=== PATIENT | male | born 1980 | race Caucasian/White ===

== ENCOUNTER 2023-10-18 20:09 | Emergency (ER) | payer OTHER, SELFPAY ==
[2023-10-18 20:09] VITALS: BMI 34.1
[2023-10-18 20:12] VITALS: BP 114/89
--- NOTE | 2023-10-18 21:24 | ED.GENMED ---
History of Present Illness
General
Chief Complaint: Abdominal Pain
Source: patient
Exam Limitations: none
Time Seen by Provider: 10/18/23 21:01
Travel History
Have you had any contact with someone who has COVID-19?: No
Do you have any symptoms of coronavirus? Fever > 100 degrees, chills, cough, shortness of breath, sore throat, loss of taste or smell, muscle aches, or headache?: No
History of Present Illness
History of Present Illness:
This is a 43 year old male that comes in with c/o upper abd pain. States that he was at [facility] 2 days ago with the same pain. States that he was told that it is his Gallbladder and he is to see a Surgeon on Saturday. Patient state that he
started with increased pain and it is a 5/10. States that he is nauseated and slight headache. Denies any fever, chills, chest pain, SOB, vomiting, diarrhea, dizziness, urinary burning.
Past History
Past History
ED Past Medical History: None; Negative Asthma, HTN, Hypercholesterolemia or NIDDM
ED Past Surgical History: Other (Hernia Repair)
Social History
Tobacco: Non-smoker
Alcohol: None
Personal:
Living: with family
Review of Systems
Review of Systems
All Other Systems: ROS reviewed and negative except as documented in HPI and ROS
Constitutional: Reports no symptoms; Denies fever or chills
EENT: Reports no symptoms
Respiratory: Denies cough or trouble breathing
Cardiac: Reports no symptoms; Denies chest pain
ABD/GI: Reports abdominal pain and nausea; Denies vomiting or diarrhea
: Reports no symptoms; Denies dysuria, frequency or urgency
Musculoskeletal: Reports no symptoms
Skin: Reports no symptoms
Neurological: Reports headache; Denies dizzy
Psychiatric: Reports no symptoms
Phy Exam
General Physical Exam
General Presentation: mild distress
General age: appears stated age
General Skin: warm and dry
General Habitus: normal
General Mental: alert
General Hydration: appears well hydrated
ENT Exam
ENT Exam: TM's normal, pharynx normal and neck supple
Eye Exam
Eye Exam: EOMI
Cardiovascular Exam
Cardiovascular Exam: regular rate/rhythm, no edema, no murmur and normal peripheral pulses
Pulmonary Exam
Pulmonary Exam: lungs clear, no respiratory distress, no rales, chest non tender, no crackles, no rhonchi, no wheezing and no cough
Gastrointestinal Exam
Gastrointestinal Exam: normal bowel sounds, soft, no organomegaly, no pulsatile mass, non distended and tender (Right upper abd tenderness with palpation)
Musculoskeletal Exam
Musculoskeletal Exam: full ROM and no edema
Skin Exam
Skin Exam: normal color, warm/dry, no rash and no petechia
Psychiatric Exam
Psychiatric Exam: normal mood/affect
Course
Orders/Labs/Results
Orders:
Orders
10/18/23 21:15
Pantoprazole [Protonix IV] 40 mg IV NOW STA
US Abdomen Limited Urgent
Comment:
Reason For Exam: Right upper abd pain
10/18/23 21:16
Ketorolac [Toradol] 30 mg IV NOW STA
10/18/23 22:02
Complete Blood Count/With Diff Urgent
Comprehensive Metabolic Panel Urgent
Lipase Urgent
Abnormal Lab Results
10/18/23
22:02
RBC 4.64 L 10^6/uL
(4.70-6.10)
10/18/23 22:02
10/18/23 22:02
labs unremarkable. lipase normal at 83
Vital Signs
Initial and Last Documented VS:
Initial Vital Signs
Temp Pulse Resp BP Pulse Ox
97.6 F 71 18 114/89 100
10/18/23 20:12 10/18/23 20:12 10/18/23 20:12 10/18/23 20:12 10/18/23 20:12
Last Documented Vital Signs
Temp Pulse Resp BP Pulse Ox
97.6 F 71 18 126/83 98
10/18/23 20:12 10/18/23 20:12 10/18/23 20:12 10/18/23 21:30 10/18/23 22:15
MDM/Problems Addressed
Differential Diagnosis Includes:
Cholelithiasis, Gastritis,
MDM/Problems Addressed:
This is a 43 year old male that comes in with c/o upper abd pain. State that he was at [facility] 2 days ago and told that he has gallstones. States that today his pain is a 5/10. States that he does have an appointment with the Surgeon on
Saturday.
Will check labs and get US.
Back into see patient. Explained that his Blood work is normal and his US shows that he has gallstones but there is no wall thickening or obstruction. Patient can follow up with the surgeon as scheduled on Saturday. Patient to stay away form fried or
fatty foods. Return with any concerns.
Chronic conditions affecting care:
NA
Acute Exacerbation and/or Progression of Chronic Illness:
NA
*Radiology
Radiology exam reviewed: radiology read reviewed (US- Cholelithiasis. NO findings to suggest acute cholecystitis. No bile duct dilation)
*Pulse Oximetry
Patient hypoxic: no
*EKG
Interpreted by ED Provider?: NA
Rate: EKG- N/A
*Compensation And Benefits Manager Interpretation
Rate: Compensation And Benefits Manager- N/A
*Critical Care Note
Total Time (30-74mins, 75-104mins- exclusive of procedures): Not Applicable
ED Attending Note
-
Portions of this chart may have been created with voice recognition software.� Occasional wrong word or��sound alike� substitutions may have occurred due to the inherent limitations of voice recognition software.
Discharge Plan
Departure
Patient Disposition: Home (Routine Discharge)
Date of Disposition: 10/18/23
Time of Disposition: 22:54
Patient with high blood pressure during this ER visit?: No
Condition: Good
Covid-19: Not Applicable
Discharge Problem:
Cholelithiases
Instructions: Gallstones (DC)
Referrals:
NONE,* [Family Provider] -
Activity Restrictions/Additional Instructions:
As discussed, your blood work is normal and our Ultrasound shows that you do have gallstones. Please follow up with the surgeon as scheduled. You may use Tylenol 1000mg every 6 hours for pain and Ibuprofen 600mg every 6 hours with food for pain. IF
YOU HAVE FEVER, VOMITING, OR YOU HAVE ANY OTHER CONCERNS PLEASE RETURN TO THE EMERGENCY ROOM.
Interventions
Interventions:
*Risk Screen - Suicide Last Done: 10/18/23 20:12
*General Assessment Last Done: 10/18/23 20:12
*Neglect/Abuse Screening Last Done: 10/18/23 20:12
Discharge Date and Time
Print Language: CHINESE
[2023-10-18 21:30] VITALS: BP 126/83
[2023-10-18 22:07] LABS: % Basophils 0.3 % (0-2); % Eosinophils 2.2 % (0-6); % Immature Granulocytes 0.1 % (0-0.5); % Lymphocytes 37.4 % (20.5-51.1); % Monocytes 6.6 % (1.7-9.3); % Neutrophils 53.4 % (42.2-75.2); Absolute Eosinophils 0.2 10^3/uL (0-0.7); Absolute Lymphocytes 2.8 10^3/uL (1.2-3.4); Absolute Monocytes 0.5 10^3/uL (0.1-0.6); Absolute Neutrophils 3.9 10^3/uL (1.4-6.5); Hematocrit 39.6 % (39.0-52.0); Hemoglobin 14.3 g/dL (13.0-18.0); Mean Corp Hgb Conc. 36.1 g/dL (33.0-37.0); Mean Corpuscular Hgb 30.8 pg (27.0-31.0); Mean Corpuscular Volume 85.3 fL (80.0-94.0); Mean Platelet Volume 9.6 fL (7.4-10.4); Nucleated Red Blood Cells % 0 % (-); Platelet Count 295 10^3/uL (130-400); Red Blood Cell Count 4.64 10^6/uL (4.70-6.10); Red Cell Dist. Width 12.1 % (11.5-14.5); White Blood Cell Count 7.4 10^3/uL (4.8-10.8)
[2023-10-18] MEDS: TORADOL 30 MG IV (22:07)
[2023-10-18] MEDS: PROTONIX IV 40 MG IV (22:08)
[2023-10-18 22:24] LABS: ALT (SGPT) 28 U/L (0-50); AST (SGOT) 29 U/L (17-59); Albumin 4.8 g/dl (3.5-5.0); Alkaline Phosphatase 57 U/L (38-126); Blood Urea Nitrogen 19 mg/dl (9-20); Calcium 9.9 mg/dl (8.4-10.2); Carbon Dioxide 23 mmol/L (22-30); Chloride 106 mmol/L (98-107); Estimated Creatinine Clearance 90 ml/min; Glucose 88 mg/dl (70-99); Lipase 83 U/L (23-300); Potassium 4.2 mmol/L (3.5-5.1); Sodium 135 mmol/L (135-145); Total Bilirubin 0.6 mg/dl (0.2-1.3); eGFR > 60.00
[2023-10-18 23:24] VITALS: BP 118/71
== END 2023-10-18 23:30 | disposition home or self-care (01) ==
LOC: EMR 20:09
PROVIDERS: Clinical Nurse Specialist Family Health; EMERGENCY PHYSICIAN Emergency Medicine
DX: K80.20 Calculus of gallbladder without cholecystitis without obstruction (principal); R51.9 Headache, unspecified; R11.0 Nausea
CPT/HCPCS: 99284; 96374; 96375; 76705; 80053; 83690; 85025

== ENCOUNTER 2023-10-22 12:21 | Emergency (ER) | payer OTHER, SELFPAY ==
[2023-10-22 12:23] VITALS: BP 172/105
--- NOTE | 2023-10-22 12:52 | ED.GENMED ---
History of Present Illness
General
Chief Complaint: Abdominal Symptoms
Source: patient and associate manager
Exam Limitations: none
Time Seen by Provider: 10/22/23 12:38
Travel History
Have you had any contact with someone who has COVID-19?: No
Do you have any symptoms of coronavirus? Fever > 100 degrees, chills, cough, shortness of breath, sore throat, loss of taste or smell, muscle aches, or headache?: No
History of Present Illness
History of Present Illness:
Patient has been asymptomatic since his visit the other day. He needs a referral for a surgeon. States not from an insurance standpoint just a referral. Again no symptoms or complaints since his last visit.
Past History
Past History
ED Past Medical History: None; Negative Asthma, HTN, Hypercholesterolemia or NIDDM
ED Past Surgical History: Other (Hernia Repair)
Social History
Tobacco: Non-smoker
Alcohol: None
Personal:
Living: with family
Review of Systems
Review of Systems
All Other Systems: Not applicable
Constitutional: Denies fever
ABD/GI: Denies abdominal pain or vomiting
Phy Exam
Physical Exam
Physical Exam:
GENERAL: Alert and oriented in no apparent distress
CARDIAC: Regular rate and rhythm without any obvious murmurs.
LUNGS: Clear breath sounds,normal
ABDOMEN: Soft, without focal tenderness or distention
NEUROLOGICAL: Alert and oriented , grossly non-focal. Gait normal
SKIN: Warm and dry
PSYCH: Normal and appropriate interaction.
Course
Vital Signs
Initial and Last Documented VS:
Initial Vital Signs
Pulse Resp BP Pulse Ox
78 20 172/105 99
10/22/23 12:23 10/22/23 12:23 10/22/23 12:23 10/22/23 12:23
Last Documented Vital Signs
Temp Pulse Resp BP Pulse Ox
98.1 F 78 20 121/94 99
04/02/24 12:28 10/22/23 12:23 10/22/23 12:23 10/22/23 13:04 10/22/23 12:23
MDM/Problems Addressed
Differential Diagnosis Includes:
Patient totally asymptomatic since his last visit. Abdomen is nontender. No indication repeat labs or repeat testing. No current suspicion for acute cholecystitis. Patient will be given a referral for surgery to follow-up. Fully understanding
*Critical Care Note
Total Time (30-74mins, 75-104mins- exclusive of procedures): Not Applicable
Data Reviewed
Review of Other/Old Records Reveals: Labs, Records and Testing
ED Attending Note
-
Portions of this chart may have been created with voice recognition software.� Occasional wrong word or��sound alike� substitutions may have occurred due to the inherent limitations of voice recognition software.
Discharge Plan
Departure
Patient Disposition: Home (Routine Discharge)
Date of Disposition: 10/22/23
Time of Disposition: 12:54
Patient with high blood pressure during this ER visit?: Yes
Discharge Problem:
Recent biliary colic
Instructions: Gallstones ED, Abdominal Pain, BLOOD PRESSURE
Referrals:
[facility] [Provider Group] - Next open appointment
[facility] [Outside] - Next open appointment
Corey Mathew MD [Active] - Follow up in 5-7 days
Activity Restrictions/Additional Instructions:
Call the surgeon for close follow-up
You also need a primary physician for your blood pressure and any other issues. I listed 2 possibilities are [facility] and [facility] to call.
Return with any recurrence of symptoms
Interventions
Interventions:
*Risk Screen - Suicide Last Done: 10/22/23 12:23
*General Assessment Last Done: 10/22/23 12:23
*Neglect/Abuse Screening Last Done: 10/22/23 12:23
*Nursing Disposition Last Done: 10/22/23 13:13
SW-Hklflf-Tuvzxocdju Assessment Last Done: 10/22/23 13:05
Discharge Date and Time
Discharge Date/Time: 10/22/23 13:14
Print Language: MEXICAN
[2023-10-22 13:04] VITALS: BP 121/94
== END 2023-10-22 13:14 | disposition home or self-care (01) ==
LOC: EMR 12:21
PROVIDERS: EMERGENCY PHYSICIAN Emergency Medicine
DX: K80.50 Calculus of bile duct without cholangitis or cholecystitis without obstruction (principal); R03.0 Elevated blood-pressure reading, without diagnosis of hypertension
CPT/HCPCS: 99282

== ENCOUNTER 2023-11-05 19:11 | Emergency (ER) | payer OTHER, SELFPAY ==
[2023-11-05 19:16] VITALS: BP 117/75
[2023-11-05 19:22] VITALS: BP 117/75; BMI 34.4
--- NOTE | 2023-11-05 19:33 | ED.GENMED ---
History of Present Illness
General
Chief Complaint: Weakness
Source: patient and family
Exam Limitations: other (Language barrier)
Time Seen by Provider: 11/05/23 19:16
Travel History
Have you had any contact with someone who has COVID-19?: No
Do you have any symptoms of coronavirus? Fever > 100 degrees, chills, cough, shortness of breath, sore throat, loss of taste or smell, muscle aches, or headache?: No
History of Present Illness
History of Present Illness:
This is a 43 year old male that comes in with c/o abd pain and vomiting. States that he was here a few weeks ago with gallstones and hypertension. Patient states that for the past 2 days he has had a fever. States that he was dizzy, and coughing.
Today he was in the bathroom and he was nauseated and vomiting yellow color. States that he passed out. States that for the past 2 days he has only eaten twice and is drinking water. Denies any chest pain, SOB, abd pain, diarrhea, headache, urinary
burning.
Past History
Past History
ED Past Medical History: None; Negative Asthma, HTN, Hypercholesterolemia or NIDDM
ED Past Surgical History: Other (Hernia Repair)
Social History
Tobacco: Non-smoker
Alcohol: None
Personal:
Living: with family
Review of Systems
Review of Systems
All Other Systems: ROS reviewed and negative except as documented in HPI and ROS
Constitutional: Reports fever; Denies chills
EENT: Reports no symptoms
Respiratory: Reports cough; Denies trouble breathing
Cardiac: Denies chest pain
ABD/GI: Reports nausea and vomiting; Denies abdominal pain or diarrhea
: Reports no symptoms; Denies dysuria, frequency or urgency
Musculoskeletal: Reports no symptoms
Skin: Reports no symptoms
Neurological: Reports dizzy; Denies headache
Psychiatric: Reports no symptoms
Phy Exam
General Physical Exam
General Presentation: no apparent distress
General age: appears stated age
General Skin: warm and dry
General Habitus: normal
General Mental: alert
General Hydration: appears well hydrated
ENT Exam
ENT Exam: TM's normal, pharynx normal and neck supple
Eye Exam
Eye Exam: EOMI
Cardiovascular Exam
Cardiovascular Exam: regular rate/rhythm, no edema, no murmur and normal peripheral pulses
Pulmonary Exam
Pulmonary Exam: lungs clear, no respiratory distress, no rales, chest non tender, no crackles, no rhonchi, no wheezing and no cough
Gastrointestinal Exam
Gastrointestinal Exam: normal bowel sounds, soft, no organomegaly, no pulsatile mass, non distended and tender (Left lower quadrant tenderness with palpation)
Musculoskeletal Exam
Musculoskeletal Exam: full ROM and no edema
Skin Exam
Skin Exam: normal color, warm/dry, no rash and no petechia
Psychiatric Exam
Psychiatric Exam: normal mood/affect
Course
Orders/Labs/Results
Orders:
Orders
11/05/23 19:31
0.9% Sodium Chloride 1000 ml [Nss] 1,000 ml IV BOLUS
Ondansetron Injectable [Zofran] 4 mg IV NOW STA
11/05/23 19:32
CT Abd/pelvis W Iv Cont Urgent
Comment:
Reason For Exam: Left lower abd pain
11/05/23 19:34
CR Chest - 2 Views Urgent
Comment:
Reason For Exam: COugh, Fever
11/05/23 19:53
COVID-19 Antigen Urgent
Source: Nasal Swab
Complete Blood Count/With Diff Urgent
Comprehensive Metabolic Panel Urgent
Lactic Acid Urgent
Lipase Urgent
Blood Culture Q30M
BENJAMIN Source: Blood/Venous
Specimen Description:
Blood Culture Q30M
BENJAMIN Source: Blood/Venous
Specimen Description:
Influenza A+B Rapid Molecular Urgent
BENJAMIN Source: Nasal Swab
Specimen Description:
11/05/23 20:40
Acetaminophen [Tylenol] 1,000 mg .ROUTE .STK-MED ONE
11/05/23 20:41
Acetaminophen [Tylenol] 1,000 mg PO NOW STA
Abnormal Lab Results
11/05/23
19:53
RBC 4.49 L 10^6/uL
(4.70-6.10)
Hct 38.2 L %
(39.0-52.0)
Absolute Monos (auto) 0.8 H 10^3/uL
(0.1-0.6)
Monocytes % 12.4 H %
(1.7-9.3)
Sodium 134 L mmol/L
(135-145)
Carbon Dioxide 20 L mmol/L
(22-30)
Creatinine 1.7 H mg/dL
(0.7-1.3)
Glucose 102 H mg/dl
(70-99)
11/05/23 19:53
11/05/23 19:53
Carbon dioxide slightly low. Glucose nonfasting,
Vital Signs
Initial and Last Documented VS:
Initial Vital Signs
Pulse BP Pulse Ox
96 117/75 91
11/05/23 19:16 11/05/23 19:16 11/05/23 19:16
Last Documented Vital Signs
Temp Pulse Resp BP Pulse Ox
100.0 F 101 27 115/78 94
11/05/23 19:22 11/05/23 21:00 11/05/23 21:00 11/05/23 21:00 11/05/23 21:00
MDM/Problems Addressed
Differential Diagnosis Includes:
Diverticulitis, COVID, Influeza
MDM/Problems Addressed:
This is a 43 year old male that comes in by ambulance with c/o vomiting and passing out. Patient states that he has only eaten food twice in 2 days and that he has had a fever.
Will get labs, CT abd, IV fluids and medicate for the vomiting.
Back into see patient. Explained that he has Influenza A. Encouraged patient to increase his water intake and explained that he has to eat. Patient to use Tylenol or Ibuprofen for any fever. Follow up with the family doctor. Return with any
concerns.
Chronic conditions affecting care:
NA
Acute Exacerbation and/or Progression of Chronic Illness:
NA
*Radiology
Radiology exam reviewed: radiology read reviewed (Chest-No radiographic evidence for Pneumonia, pleural effusion or pneumoperitoneum. Mild to moderate elevation of the anterior right hemidiaphragm. MIld subsegmental atelectasis in the lower lobes.
CT-Moderate diffuse hepatic steatosis. Mild hepatosplenomegaly. Cholelithias. Mild chronic bilatera) and all reviewed NAD by ED Provider (CT cont- bilateral renal diseae. Small recurrent fat-containing anterior abdominal wall hernia. MIldly
enlarged prostate gland causing mild chronic urinary bladder outlet obstruction. Severe discogenic degenerative disease at L5/S1)
*Pulse Oximetry
Patient hypoxic: no
*Napper Grinder Interpretation
Rate: normal
Heart Rate: 93
Rhythm: sinus
*Critical Care Note
Total Time (30-74mins, 75-104mins- exclusive of procedures): Not Applicable
ED Attending Note
-
Portions of this chart may have been created with voice recognition software.� Occasional wrong word or��sound alike� substitutions may have occurred due to the inherent limitations of voice recognition software.
Discharge Plan
Departure
Patient Disposition: Home (Routine Discharge)
Date of Disposition: 11/05/23
Time of Disposition: 22:22
Patient with high blood pressure during this ER visit?: No
Condition: Good
Covid-19: Negative COVID-19
Discharge Problem:
Influenza A
Instructions: Flu, Adult (DC)
Referrals:
NONE,* [Family Provider] -
Activity Restrictions/Additional Instructions:
As discussed, you have influenza A. This is a viral syndrome that has to run it course. Please increase your water intake to 8-8oz glasses daily. You have to eat a well balanced diet so the body has something to work with. Follow up with the family
doctor for recheck. Tylenol or Ibuprofen for any fever. IF YOU HAVE ANY OTHER CONCERNS PLEASE RETURN TO THE EMERGENCY ROOM.
Interventions
Interventions:
ED- Fall Risk Assessment Last Done: 11/05/23 19:27
ED- Cardiac Assessment Last Done: 11/05/23 19:27
ED- Neurological Assessment Last Done: 11/05/23 19:27
ED- Pulmonary Assessment Last Done: 11/05/23 19:27
Discharge Date and Time
Print Language: SERBIAN
[2023-11-05] MEDS: NSS 1000 IV (19:46)
[2023-11-05] MEDS: ZOFRAN 4 MG IV (19:46)
[2023-11-05 20:05] LABS: % Basophils 0.3 % (0-2); % Eosinophils 0.6 % (0-6); % Immature Granulocytes 0.3 % (0-0.5); % Lymphocytes 24.2 % (20.5-51.1); % Monocytes 12.4 % (1.7-9.3); % Neutrophils 62.2 % (42.2-75.2); Absolute Lymphocytes 1.5 10^3/uL (1.2-3.4); Absolute Monocytes 0.8 10^3/uL (0.1-0.6); Absolute Neutrophils 3.9 10^3/uL (1.4-6.5); Hematocrit 38.2 % (39.0-52.0); Hemoglobin 13.8 g/dL (13.0-18.0); Mean Corp Hgb Conc. 36.1 g/dL (33.0-37.0); Mean Corpuscular Hgb 30.7 pg (27.0-31.0); Mean Corpuscular Volume 85.1 fL (80.0-94.0); Nucleated Red Blood Cells % 0 % (-); Platelet Count 221 10^3/uL (130-400); Red Blood Cell Count 4.49 10^6/uL (4.70-6.10); White Blood Cell Count 6.3 10^3/uL (4.8-10.8)
[2023-11-05 20:16] LABS: Lactic Acid 1.3 mmol/L (0.7-2.0)
[2023-11-05 20:19] LABS: ALT (SGPT) 32 U/L (0-50); AST (SGOT) 38 U/L (17-59); Albumin 4.8 g/dl (3.5-5.0); Alkaline Phosphatase 51 U/L (38-126); Blood Urea Nitrogen 16 mg/dl (9-20); COVID-19 Antigen Negative (Negative); Calcium 9.3 mg/dl (8.4-10.2); Carbon Dioxide 20 mmol/L (22-30); Chloride 104 mmol/L (98-107); Estimated Creatinine Clearance 64 ml/min; Glucose 102 mg/dl (70-99); Lipase 149 U/L (23-300); Potassium 4.2 mmol/L (3.5-5.1); Sodium 134 mmol/L (135-145); Total Bilirubin 0.6 mg/dl (0.2-1.3); Total Protein 8.2 g/dl (6.3-8.2); eGFR 50.04
[2023-11-05 20:21] VITALS: BP 134/86
[2023-11-05] MEDS: TYLENOL 1000 MG PO (20:42)
[2023-11-05 21:00] VITALS: BP 115/78
== END 2023-11-05 22:56 | disposition home or self-care (01) ==
LOC: EMR 19:11
PROVIDERS: Clinical Nurse Specialist Family Health; EMERGENCY PHYSICIAN Emergency Medicine
DX: J10.1 Influenza due to other identified influenza virus with other respiratory manifestations (principal); Z11.52 Encounter for screening for COVID-19
CPT/HCPCS: 99285; 96374; 96361; 71046; 74177; 80053; 83605; 83690; 85025; 87040; 87502; 87811; Q9967

== ENCOUNTER 2023-11-25 18:04 | Inpatient (IN) | payer OTHER, SELFPAY ==
[2023-11-23] VITALS (9 sets, daily range): BP systolic 106–139; BP diastolic 58–89
--- NOTE | 2023-11-23 12:04 | ED.GENMED ---
History of Present Illness
<Pilar Ritchie PA-C - Last Filed: 11/25/23 18:10>
General
Chief Complaint: Abdominal Pain
Source: patient
Exam Limitations: none
Time Seen by Provider: 11/23/23 11:59
Nursing documentation reviewed up to this point in time: agreed with
Travel History
Have you had any contact with someone who has COVID-19?: No
Do you have any symptoms of coronavirus? Fever > 100 degrees, chills, cough, shortness of breath, sore throat, loss of taste or smell, muscle aches, or headache?: No
History of Present Illness
History of Present Illness:
43-year-old male with a history of cholelithiasis presents for right upper quadrant pain to his back x 2 days
pt asys th epain was waxing and waning but it got worse since midnight
nausea but no vomiting
no urinary symptos
no fever,chills, diarrhea, consitpation
he says he has had trouble breathing overnight due to pain
the pain is worse with movement, deep breathing,
he has take tylenol without relief
no h/o aortic disease.
Past History
<Pilar Ritchie PA-C - Last Filed: 11/25/23 18:10>
Past History
ED Past Medical History: Negative Asthma, HTN, Hypercholesterolemia or NIDDM
ED Past Surgical History: Other (Hernia Repair)
Social History
Tobacco: Non-smoker
Alcohol: None
Personal:
Living: with family
Review of Systems
<ANGELA Johnson Last Filed: 11/25/23 18:10>
Review of Systems
Allergies reviewed?: Yes
All Other Systems: Not applicable
Phy Exam
<ANGELA Johnson Last Filed: 11/25/23 18:10>
Physical Exam
Physical Exam:
GENERAL: Alert , in no apparent distress, moaning, pale
EYE: pupils equal and reactive
NECK: Supple
ENT: o/p clr, mmm.
CARDIAC: Regular rate and rhythm ., no edema
LUNGS: Clear breath sounds bilaterally, no acute respiratory distress, no wheezes/rales/rhonchi
ABDOMEN: Soft, minmal RUQ tenderness, no r/g, moderate R cvat, normal bowel sounds
NEUROLOGICAL: Alert and oriented, no focal neuro deficits
SKIN: Warm and dry, skin intact.
MUSCULOSKELETAL: No edema, well perfused.
PSYCH: Normal and appropriate interaction.
Course
<Pilar Ritchie PA-C - Last Filed: 11/25/23 18:10>
Orders/Labs/Results
Orders:
Orders
11/23/23 12:08
US Abdomen Complete/Upper Urgent
Comment:
Reason For Exam: ruq pain, h.o cholelithiasis
11/23/23 12:32
Electrocardiogram (*1) Urgent
Reason for Study: Abdominal Pain
EKG- Treatment ONCE
11/23/23 12:33
Complete Blood Count/With Diff Urgent
Comprehensive Metabolic Panel Urgent
Lipase Urgent
11/23/23 12:53
0.9% Sodium Chloride 1000 ml [Nss] 1,000 ml IV BOLUS
HYDROmorphone [Dilaudid] 1 mg IV NOW STA
11/23/23 12:54
Troponin I Urgent
Ondansetron Injectable [Zofran] 4 mg IV NOW STA
11/23/23 13:00
CR Chest Portable - 1 View Urgent
Comment:
Reason For Exam: abd pain to back
Reason Study Needs to be Portable: Patient Unstable
11/23/23 Dinner
Clear Liquid
At Your Request: Limited, Half Section Ironer Required
Does patient need a safe tray?: No
11/23/23 15:13
CT Chest/abd/pelvis Angio W/wo Urgent
Comment:
Reason For Exam: ruq severe to back
11/23/23 15:17
HYDROmorphone [Dilaudid] 0.5 mg IV NOW STA
11/23/23 16:35
Ketorolac [Toradol] 15 mg IV NOW STA
11/23/23 17:03
Admit/Transfer Patient As Directed
Co-Sign Provider:
Level of Care: Observation services
Assign to:: Medical/Surgical
Physician / Group: Surgery/Mateusz
Diagnosis: Biliary colic
Code Status As Directed
Resuscitation Status: Full Code
11/23/23 17:04
Urinalysis Reflex To Culture Urgent
Date Specimen was Collected: 11/23/23
Time Specimen was Collected: 17:01
11/23/23 18:14
Acetaminophen [Tylenol] 650 mg PO Q4HPRN PRN
11/23/23 18:14
Activity As Directed
Activity Level: Out of Bed-Early Mobility
Vital Signs As Directed
Frequency: Per unit guidelines
DX Deep Vein Thrombosis Video Routine
11/23/23 19:00
Ondansetron Injectable [Zofran] 4 mg IV Q6HPRN PRN
11/23/23 20:00
HYDROmorphone [Dilaudid] 1 mg IV Q4HPRN PRN
11/23/23 21:00
Enoxaparin Sodium [Lovenox] 40 mg SC QPM
11/23/23 23:00
Ketorolac [Toradol] 10 mg IV Q6HPRN PRN
11/24/23 04:17
Complete Blood Count/No Diff IN AM
Comprehensive Metabolic Panel IN AM
Abnormal Lab Results
11/23/23
12:33
RBC 4.32 L 10^6/uL
(4.70-6.10)
Hct 37.4 L %
(39.0-52.0)
Absolute Monos (auto) 0.8 H 10^3/uL
(0.1-0.6)
Creatinine 1.4 H mg/dL
(0.7-1.3)
11/23/23 12:33
11/23/23 12:33
Vital Signs
Initial and Last Documented VS:
Initial Vital Signs
Temp Pulse Resp BP Pulse Ox
98.7 F 83 18 115/80 99
11/23/23 11:02 11/23/23 11:02 11/23/23 11:02 11/23/23 11:02 11/23/23 11:02
Last Documented Vital Signs
Temp Pulse Resp BP Pulse Ox
97.7 F 73 16 129/82 95
11/25/23 16:00 11/25/23 16:00 11/25/23 16:00 11/25/23 16:00 11/25/23 16:00
<Maikol Colunga, DO - Last Filed: 11/24/23 07:02>
Orders/Labs/Results
Orders:
Orders
11/23/23 12:08
US Abdomen Complete/Upper Urgent
Comment:
Reason For Exam: ruq pain, h.o cholelithiasis
11/23/23 12:32
Electrocardiogram (*1) Urgent
Reason for Study: Abdominal Pain
EKG- Treatment ONCE
11/23/23 12:33
Complete Blood Count/With Diff Urgent
Comprehensive Metabolic Panel Urgent
Lipase Urgent
11/23/23 12:53
0.9% Sodium Chloride 1000 ml [Nss] 1,000 ml IV BOLUS
HYDROmorphone [Dilaudid] 1 mg IV NOW STA
11/23/23 12:54
Troponin I Urgent
Ondansetron Injectable [Zofran] 4 mg IV NOW STA
11/23/23 13:00
CR Chest Portable - 1 View Urgent
Comment:
Reason For Exam: abd pain to back
Reason Study Needs to be Portable: Patient Unstable
11/23/23 Dinner
Clear Liquid
At Your Request: Limited, Half Section Ironer Required
Does patient need a safe tray?: No
11/23/23 15:13
CT Chest/abd/pelvis Angio W/wo Urgent
Comment:
Reason For Exam: ruq severe to back
11/23/23 15:17
HYDROmorphone [Dilaudid] 0.5 mg IV NOW STA
11/23/23 16:35
Ketorolac [Toradol] 15 mg IV NOW STA
11/23/23 17:03
Admit/Transfer Patient As Directed
Co-Sign Provider:
Level of Care: Observation services
Assign to:: Medical/Surgical
Physician / Group: Surgery/Mateusz
Diagnosis: Biliary colic
Code Status As Directed
Resuscitation Status: Full Code
11/23/23 17:04
Urinalysis Reflex To Culture Urgent
Date Specimen was Collected: 11/23/23
Time Specimen was Collected: 17:01
11/23/23 18:14
Acetaminophen [Tylenol] 650 mg PO Q4HPRN PRN
11/23/23 18:14
Activity As Directed
Activity Level: Out of Bed-Early Mobility
Vital Signs As Directed
Frequency: Per unit guidelines
DX Deep Vein Thrombosis Video Routine
11/23/23 19:00
Ondansetron Injectable [Zofran] 4 mg IV Q6HPRN PRN
11/23/23 20:00
HYDROmorphone [Dilaudid] 1 mg IV Q4HPRN PRN
11/23/23 21:00
Enoxaparin Sodium [Lovenox] 40 mg SC QPM
11/23/23 23:00
Ketorolac [Toradol] 10 mg IV Q6HPRN PRN
11/24/23 04:17
Complete Blood Count/No Diff IN AM
Comprehensive Metabolic Panel IN AM
Abnormal Lab Results
11/23/23
12:33
RBC 4.32 L 10^6/uL
(4.70-6.10)
Hct 37.4 L %
(39.0-52.0)
Absolute Monos (auto) 0.8 H 10^3/uL
(0.1-0.6)
Creatinine 1.4 H mg/dL
(0.7-1.3)
11/23/23 12:33
11/23/23 12:33
Vital Signs
Initial and Last Documented VS:
Initial Vital Signs
Temp Pulse Resp BP Pulse Ox
98.7 F 83 18 115/80 99
11/23/23 11:02 11/23/23 11:02 11/23/23 11:02 11/23/23 11:02 11/23/23 11:02
Last Documented Vital Signs
Temp Pulse Resp BP Pulse Ox
97.7 F 73 16 129/82 95
11/25/23 16:00 11/25/23 16:00 11/25/23 16:00 11/25/23 16:00 11/25/23 16:00
Nishantlt;Pilar Ritchie PA-C - Last Filed: 11/25/23 18:10>
MDM/Problems Addressed
Differential Diagnosis Includes:
cholelithisis, dissection, pe, kidney stone
MDM/Problems Addressed:
43-year-old male with a history of a known gallstone presents for right upper quadrant pain radiating to his back over the last 2 days which has gotten much worse over night around midnight. It rates 10 out of 10 despite Tylenol. Has had some
nausea with no vomiting. He last had a bowel movement yesterday which is normal. He is having no urinary symptoms. His pain is worse with deep breathing and movement. He is requesting to have his gallbladder taken out
Patient said he had similar episode of pain 2 months ago when he got diagnosed when he came here. He may have seen surgery as an outpatient, it sounds as if they made an appointment for him but I am not sure if he saw the surgeon
On arrival patient's pale, moaning, normotensive, not tachycardic, has mild right-sided CVA tenderness, no skin changes, minimal to no right upper quadrant tenderness but he does have discomfort with deep breathing. EKG is normal sinus rhythm
without any ST elevation or depression. He has unremarkable labs including negative troponin, normal white count, normal lipase. Patient's creatinine is slightly elevated 1.4 but his GFR is over 60. Patient's portable chest x-ray shows a narrow
mediastinum. I saw this patient in conjunction with the ED physician Dr. Colunga. He did not feel that dissection was likely however this seems to be a fair amount of pain for cholelithiasis. While awaiting ultrasound report patient began moaning
again in pain, his color is slightly pale but his vitals are stable. Will redosed with pain medication and send for dissection study. Anticipate admission
Insert time dissection study negative discussed with radiologist. I did reach out to Dr. Almanzar on-call for general surgery who will evaluate the patient at the bedside and patient will likely be admitted to either medicine or surgery service
accepted to surgery
<Maikol Colunga, - Last Filed: 11/24/23 07:02>
*Critical Care Note
Total Time (30-74mins, 75-104mins- exclusive of procedures): Not Applicable
ED Attending Note
<Pilar Ritchie PA-C - Last Filed: 11/25/23 18:10>
-
Portions of this chart may have been created with voice recognition software.� Occasional wrong word or��sound alike� substitutions may have occurred due to the inherent limitations of voice recognition software.
<Maikol Colunga, DO - Last Filed: 11/24/23 07:02>
ED Attending Note
Patient seen and examined by attending physician: Yes
I performed the substantive portion of visit, reviewed & personally made and approve the management plan that is documented in note by myself or POLLY.: Yes
ED Attending Note:
SEEN WITH PA, examined independently 43-year-old male history of gallstones presents with 2 days of pain in his right upper abdomen into his back
EKG noted prior imaging noted
Discharge Plan
Departure
Patient Disposition: Admit
Date of Disposition: 11/23/23
Time of Disposition: 16:52
Admit to: Med/Surg
Admit to doctor: mateusz
Presentation/result/management discussed w/ accepting MD/DO: gs
Condition: Fair
Covid-19: Not Applicable
Discharge Problem:
Cholelithiasis
Interventions
Interventions:
*Risk Screen - Suicide Last Done: 11/23/23 18:28
*General Assessment Last Done: 11/23/23 11:02
*Neglect/Abuse Screening Last Done: 11/23/23 11:02
ED- Fall Risk Assessment Last Done: 11/23/23 12:26
*ED COVID-19 Vaccine History Last Done: 11/23/23 11:02
*Nursing Disposition Last Done: 11/23/23 18:12
NH-Psomtd-Vrxyeolwmu Assessment Last Done: 11/23/23 12:26
Discharge Date and Time
Discharge Date/Time: 11/23/23 18:12
[2023-11-23] MEDS: DILAUDID 1 MG IV ×2 (12:58→21:35)
[2023-11-23] MEDS: NSS 1000 IV (12:59)
[2023-11-23] MEDS: ZOFRAN 4 MG IV ×2 (12:59→22:59)
[2023-11-23 13:09] LABS: % Basophils 0.3 % (0-2); % Eosinophils 0.8 % (0-6); % Immature Granulocytes 0.3 % (0-0.5); % Lymphocytes 23.6 % (20.5-51.1); % Monocytes 8.4 % (1.7-9.3); % Neutrophils 66.6 % (42.2-75.2); Absolute Eosinophils 0.1 10^3/uL (0-0.7); Absolute Lymphocytes 2.3 10^3/uL (1.2-3.4); Absolute Monocytes 0.8 10^3/uL (0.1-0.6); Absolute Neutrophils 6.5 10^3/uL (1.4-6.5); Hematocrit 37.4 % (39.0-52.0); Hemoglobin 13.2 g/dL (13.0-18.0); Mean Corp Hgb Conc. 35.3 g/dL (33.0-37.0); Mean Corpuscular Hgb 30.6 pg (27.0-31.0); Mean Corpuscular Volume 86.6 fL (80.0-94.0); Mean Platelet Volume 9.9 fL (7.4-10.4); Nucleated Red Blood Cells % 0 % (-); Platelet Count 271 10^3/uL (130-400); Red Blood Cell Count 4.32 10^6/uL (4.70-6.10); White Blood Cell Count 9.8 10^3/uL (4.8-10.8)
[2023-11-23 13:22] LABS: ALT (SGPT) 23 U/L (0-50); AST (SGOT) 23 U/L (17-59); Albumin 4.7 g/dl (3.5-5.0); Alkaline Phosphatase 61 U/L (38-126); Blood Urea Nitrogen 16 mg/dl (9-20); Calcium 9.8 mg/dl (8.4-10.2); Carbon Dioxide 27 mmol/L (22-30); Chloride 105 mmol/L (98-107); Glucose 86 mg/dl (70-99); Lipase 77 U/L (23-300); Sodium 136 mmol/L (135-145); Total Bilirubin 0.7 mg/dl (0.2-1.3); eGFR > 60.00
[2023-11-23 13:34] LABS: Troponin I < 0.012 ng/ml
[2023-11-23] MEDS: DILAUDID 0.5 MG IV (15:58)
--- NOTE | 2023-11-23 16:51 | HPS.HSE ---
Family Physician
-
Family Physician: NOT KNOW UNKNOWN - PT DOES
Chief Complaint
-
pain/vomiting
History of Present Illness
This is a 43 yo male with a h/o HTN and umbilical hernia repair in [facility] and gallstones with multiple presentations for biliary colic in the last 2 months through the ED and Camron Cramer who presents today via ems with nausea, vomiting and
abdominal pain radiating into his back. He was referred to surgery on prior ED visit for discussion of cholecystectomy and had follow up appointment scheduled with Dr. Mathew on 10/30 which he did not keep. He reports, he has follow up scheduled
with a surgeon at [facility] this month instead. Over the past 2 days, he has had waxing and waning pain associated with food which worsened overnight with onset of nausea and vomiting prompting him to call EMS. He is more comfortable now but still
has residual back pain. His abdomen is soft and nontender. Nausea has improved.
Medical History
Past Medical History
Past Medical History: Reports HTN
Past Surgical History: Reports Other (UHR 3 years ago in [facility])
Social History
Tobacco: Non-smoker
Alcohol: None
Personal:
Living: With Family
Family History
Family History: Not pertinent
Allergies / Home Medications
Allergies reflects when Allergies were last updated in [employer].
Home Medications with original date entered in [employer]
Allergy/Medication List:
Patient Allergies
Allergy/AdvReac Type Severity Reaction Status Date / Time
No Known Allergies Allergy Verified 11/23/23 11:03
If medication reconciliation has not been performed, why?: Medication List N/A
Review of Systems
-
History Source: Patient and Family
A 12 point ROS was completed and negative except as noted: Yes
Physical Exam
Vital Signs
Vital Signs
Temp Pulse Resp BP Pulse Ox
98.7 F 104 41 113/65 97
11/23/23 11:02 11/23/23 15:54 11/23/23 15:54 11/23/23 15:54 11/23/23 15:54
Physical Exam
General: Well Nourished and Conversant; No Comfortable
HEENT: NormoCephalic and Moist mucous membranes
GI: Soft, Non Tender and Non Distended
Skin: Warm and Dry
Neuro: Awake, Alert and AO x 3
Psych: Calm
Laboratory Results
-
11/23/23 12:33
11/23/23 12:33
Laboratory Results
Total Bilirubin 0.7 mg/dl (0.2-1.3) 11/23/23 12:33
AST 23 U/L (17-59) 11/23/23 12:33
ALT 23 U/L (0-50) 11/23/23 12:33
Alkaline Phosphatase 61 U/L (38-126) 11/23/23 12:33
Troponin I < 0.012 ng/ml 11/23/23 12:54
Lipase 77 U/L (23-300) 11/23/23 12:33
Data Reviewed
-
CT Scan: Image Personally Visualized and interpreted, Report Reviewed by me, Discussed with Physician, Discussed with Nurse, Discussed with Patient and Discussed with Family
Ultrasound: Image Personally Visualized and interpreted, Report Reviewed by me, Discussed with Physician, Discussed with Patient and Discussed with Family
Lab Data: Labs Reviewed by me, Discussed with Physician, Discussed with Patient and Discussed with Family
Old Records: Reviewed
Impression/Plan
-
IMPRESSION:
43 yo male presenting with biliary colic with intractable RUQ pain into his back and nausea with known history of gallstones and multiple ED visits for the same. US and CT reviewed. Negative Zabala's and no tenderness on exam. Gallstones present
with possible stone in gallbladder neck. No evidence of cholecystitis. LFT's normal. No leukocytosis. Mild RAFFAELE, suspect secondary to dehydration. Afebrile with mild tachycardia, improved with analgesics.
PLAN:
Place in observation
LR at 100ml/hr IV
Clear liquid diet as tolerated
Analgesics/Antiemetics prn
Labs in AM
Will follow, tentative OR Saturday if pain persists vs as an outpatient on a scheduled basis with his surgeon at [facility]
[2023-11-23] MEDS: TORADOL 15 MG IV (17:00)
[2023-11-23 17:15] LABS: Urine Albumin Negative (Neg - Trace); Urine Bilirubin Negative (Negative); Urine Character Clear (Clear); Urine Color Yellow; Urine Glucose Negative (Negative); Urine Ketone Negative (Negative); Urine Leukocyte Negative (Negative); Urine Nitrite Negative (Negative); Urine Occult Blood Negative (Negative); Urine Urobilinogen Negative (Neg - 1+)
[2023-11-23] MEDS: LOVENOX 40 MG SC (20:58)
[2023-11-23] MEDS: TORADOL 10 MG IV (22:44)
[2023-11-24 05:18] LABS: Hematocrit 35.9 % (39.0-52.0); Hemoglobin 12.6 g/dL (13.0-18.0); Mean Corp Hgb Conc. 35.1 g/dL (33.0-37.0); Mean Corpuscular Hgb 30.4 pg (27.0-31.0); Mean Corpuscular Volume 86.5 fL (80.0-94.0); Mean Platelet Volume 10.1 fL (7.4-10.4); Platelet Count 262 10^3/uL (130-400); Red Blood Cell Count 4.15 10^6/uL (4.70-6.10); Red Cell Dist. Width 12.1 % (11.5-14.5); White Blood Cell Count 7.9 10^3/uL (4.8-10.8)
[2023-11-24 05:48] LABS: ALT (SGPT) 18 U/L (0-50); AST (SGOT) 19 U/L (17-59); Albumin 4.2 g/dl (3.5-5.0); Alkaline Phosphatase 56 U/L (38-126); Blood Urea Nitrogen 15 mg/dl (9-20); Calcium 9.5 mg/dl (8.4-10.2); Carbon Dioxide 24 mmol/L (22-30); Chloride 106 mmol/L (98-107); Estimated Creatinine Clearance 77 ml/min; Glucose 93 mg/dl (70-99); Potassium 4.7 mmol/L (3.5-5.1); Sodium 137 mmol/L (135-145); Total Bilirubin 0.9 mg/dl (0.2-1.3); Total Protein 7.3 g/dl (6.3-8.2); eGFR > 60.00
[2023-11-24] MEDS: DILAUDID 1 MG IV ×5 (05:54→23:35)
[2023-11-24 07:30] VITALS: BP 122/73
[2023-11-24] MEDS: LR 1000 IV ×2 (07:51→17:32)
[2023-11-24] MEDS: TORADOL 10 MG IV ×2 (08:06→15:51)
--- NOTE | 2023-11-24 10:51 | CM ---
Addendum entered by Valentin Kraus 11/24/23 10:57:
OBS status reviewed, OBS letter signed, placed on chart, pt has a copy.
Original Note:
CM following re: discharge planning.
reviewed pt's chart, met with pt and pt's spouse at bedside.
Pt is a 43 year old Bulgarian/Lebanese speaking male, admitted with OBS status and primary dx of biliary colic with intractable RUQ pain into his back and nausea with known history of gallstones and multiple ED visits for the same.
Pt reports he was born and grew up in [facility], immigrated to [place] 7 years ago, his spouse and 5 children reunited with him 3 months ago. Pt resides with spouse and 5 children (26, 24, 18, 15 and 14 year of age) in a 2SH, 2 steps to enter. Pt
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 Pt admitted he has been dealing with pain for the past 4-5 years.
PCP: pt stated he will have an appointment with Dr. April Duffy on 12/27/23.
PCP: [facility].
D/C plan: home with anticipated no needs.
CM will follow with discharge plan updates as hospitalization progresses
[2023-11-24] MEDS: ZOSYN 50 IV ×3 (11:51→23:06)
[2023-11-24] MEDS: TYLENOL 650 MG PO (14:24)
[2023-11-24 15:50] VITALS: BP 132/77
[2023-11-24] MEDS: LOVENOX 40 MG SC (16:56)
[2023-11-24] MEDS: DILAUDID 0.5 MG IV (16:56)
[2023-11-24] MEDS: ZOFRAN 4 MG IV ×2 (17:01→23:28)
--- NOTE | 2023-11-24 17:59 | PTCARENOTE ---
Patient with mod-severe pain today in right flank area and occasionally epigastric area. PRNs dilaudid, toradol, and tylenol administered. Pain unable to be managed- Sandi Canseco notified and ordered stat dilaudid 0.5mg and increased PRN dilaudid to
1mg. Patient then with nausea and one large episode emesis- zofran administered. Patient now resting comfortably in bed.
[2023-11-24] MEDS: COMPAZINE 5 MG IV (21:54)
[2023-11-24 23:15] VITALS: BP 127/28
[2023-11-25] VITALS (12 sets, daily range): BP systolic 126–164; BP diastolic 73–97
[2023-11-25] MEDS: LR 1000 IV (05:02)
[2023-11-25] MEDS: DILAUDID 1 MG IV ×2 (05:02→08:56)
[2023-11-25] MEDS: ZOSYN 50 IV ×4 (05:03→23:57)
[2023-11-25 05:08] LABS: Hematocrit 34.6 % (39.0-52.0); Hemoglobin 12.3 g/dL (13.0-18.0); Mean Corp Hgb Conc. 35.5 g/dL (33.0-37.0); Mean Corpuscular Hgb 30.8 pg (27.0-31.0); Mean Corpuscular Volume 86.5 fL (80.0-94.0); Platelet Count 247 10^3/uL (130-400); Red Cell Dist. Width 11.9 % (11.5-14.5); White Blood Cell Count 6.8 10^3/uL (4.8-10.8)
[2023-11-25 05:33] LABS: Blood Urea Nitrogen 17 mg/dl (9-20); Calcium 9.4 mg/dl (8.4-10.2); Carbon Dioxide 23 mmol/L (22-30); Chloride 106 mmol/L (98-107); Estimated Creatinine Clearance 64 ml/min; Glucose 84 mg/dl (70-99); Potassium 4.5 mmol/L (3.5-5.1); Sodium 140 mmol/L (135-145); eGFR 50.04
[2023-11-25] MEDS: TORADOL 10 MG IV (07:21)
[2023-11-25] MEDS: ZOFRAN 4 MG IV (08:56)
--- NOTE | 2023-11-25 09:00 | W.SUR.PREOP ---
Pre-Operative Surgical Note
-
I have examined this patient prior to the performance of the scheduled procedure.
The patient's condition is unchanged from the time of the current History and
Physical and the patient is able to undergo the scheduled procedure.
--- NOTE | 2023-11-25 09:00 | W.PN.GS2 ---
Today's Communication / Plan
-
Or today
Assessment / Plan
-
This is a 43-year-old male primarily Romanian-speaking with a history of umbilical hernia repair with mesh, who presents with a 2-day history of postprandial right upper quadrant pain. Imaging and blood work all consistent with acute cholecystitis.
Plan for laparoscopic cholecystectomy in the OR today.
N.p.o., IV fluids, IV antibiotics.
Risks/Benefits/Alternatives, expected postoperative course and possible complications (bleeding, infection, injury to surrounding structures, acute/chronic pain) discussed at length. Patient wishes to proceed with surgery. All questions answered.
Consent obtained.
I spent roughly 60 minutes in total for the care of this patient today including direct patient care and counseling, reviewing labs, imaging, coordination of care, as well as documentation.
Time Spent
Total Time Spent with Patient (in minutes): 20
Subjective Data
-
Date of Service: November 25, 2023
Interval Events:
No acute events overnight. Slept well. Pain Controlled. Denies Nausea/Vomiting.
Objective Data
-
Intake and Output
11/24/23 11/25/23 11/26/23
06:59 06:59 06:59
Intake Total 2580 / 2580
Balance 2580 / 2580
Intake:
Oral fluids 480 / 480
IV fluids (Total) 1900 / 1900
IV piggybacks 200 / 200
Other:
Number of approximated MODERATE 2
amounts of urine
Vital Signs
Temp Pulse Resp BP Pulse Ox
98.6 F 66 16 126/73 93
11/25/23 08:00 11/25/23 08:00 11/25/23 08:00 11/25/23 08:00 11/25/23 08:00
Lab Results
11/25/23 04:17
11/25/23 04:17
Calcium 9.4 mg/dl (8.4-10.2) 11/25/23 04:17
Total Bilirubin 0.9 mg/dl (0.2-1.3) 11/24/23 04:17
AST 19 U/L (17-59) 11/24/23 04:17
ALT 18 U/L (0-50) 11/24/23 04:17
Alkaline Phosphatase 56 U/L (38-126) 11/24/23 04:17
Total Protein 7.3 g/dl (6.3-8.2) 11/24/23 04:17
Albumin 4.2 g/dl (3.5-5.0) 11/24/23 04:17
Physical Exam
-
GENERAL/NEURO: Awake, Alert, no distress
CHEST: Unlabored breathing on RA
ABDOMEN: Soft, tender to palpation in the right upper quadrant, Non-Distended, midline umbilical hernia incision
--- NOTE | 2023-11-25 11:26 | W.IMMPOSTOP ---
Addendum entered and electronically signed by Francisco Monteiro MD 11/26/23 11:13:
Under operative findings 'A small branch of this was coursing to the gallbladder consistent with a posterior cystic <del>duct</del> artery, this was clipped and divided.'
Original Note:
Surgical Immed Post Op Note
-
Primary Surgeon: Francisco Monteiro MD
Assisting Surgeon: None
Pre-op Diagnosis: Acute cholecystitis
Post-op Diagnosis: Same
Procedure Performed: Laparoscopic cholecystectomy and cholangiogram
Anesthesia Type: General
Specimen / Cultures: Gallbladder and contents
Estimated Blood Loss: 7 cc
Complications: None
Operative Findings: Tense/inflamed gallbladder. Critical view of safety obtained prior to and attempted cholangiogram. While we were able to cannulate the duct we were unable to successfully flush the duct due to its diminutive nature. Right
hepatic artery noted to be coursing in the gallbladder fossa. A small branch of this was coursing to the gallbladder consistent with a posterior cystic duct artery this was clipped and divided. The main trunk coursing to the liver was preserved.
A true cystic artery in its normal anatomic position was also identified and preserved. A small rent was made in the gallbladder with spillage of bile but no stones, this was suctioned out until clear.
POST OP PLAN:
Imaging: None
Labs: Routine AM
Diet: Advance to Regular as tolerated
Analgesia: Tylenol 650mg q6 Fernando, Katrin 5mg q6 PRN, Dilaudid 0.5mg q2h PRN
Neuro/vascular checks: q4h
AC/AP: Hold Therapeutic AC, Ok for DVT PPx
Activity: Ad Ada
Wound/Incisions/Drains: Routine
Abx: Zosyn or Brilinta x 4 days
Dispo: RNF, anticipate discharge home tomorrow.
--- NOTE | 2023-11-25 11:30 | OR.RPT ---
Addendum entered and electronically signed by Francisco Monteiro MD 11/26/23 11:14:
Under operative findings: 'A small branch of this was coursing to the gallbladder consistent with a posterior cystic <del>duct</del> artery, this was clipped and divided.'
Original Note:
Operative Report
Operative Report
Patient Name: Christopher Coburn
: 1980
Date of Operation: 11/25/2023
Preoperative Diagnosis: Acute cholecystitis
Postoperative Diagnosis: Same
Procedure(s):
Laparoscopic Cholecystectomy with Cholangiogram
Surgeon(s):
Dr. Monteiro
Commercial Front Load Operator(s):
None
Anesthesia: General
Estimated Blood Loss: 7 cc
Urine Output: None
Drains/Lines/Implants: None
Specimens:
1. Gallbladder and contents
HPI/Surgical Indications:
This is a 43-year-old male with a history of a known umbilical hernia repair with mesh in [place] who presents with a 1 day history of right upper quadrant abdominal pain. Exam, labs and imaging are consistent with early acute cholecystitis.
Risks/Benefits/Alternatives were discussed at length, and the patient agreed to proceed with surgery.
Operative Findings: Tense/inflamed gallbladder. Critical view of safety obtained prior to and attempted cholangiogram. While we were able to cannulate the duct we were unable to successfully flush the duct due to its diminutive nature. Right
hepatic artery noted to be coursing in the gallbladder fossa. A small branch of this was coursing to the gallbladder consistent with a posterior cystic duct artery this was clipped and divided. The main trunk coursing to the liver was preserved.
A true cystic artery in its normal anatomic position was also identified and preserved. A small rent was made in the gallbladder with spillage of bile but no stones, this was suctioned out until clear.
Procedure Description:
The patient was brought to the Operating Room and placed in the supine position with one arm tucked. Following uneventful induction of general endotracheal anesthesia, an orogastric tube was placed. The abdomen was prepped and draped in the usual
sterile fashion. A timeout was performed confirming the procedure, consent, and that IV antibiotics were infused and sequential compression devices were confirmed to be on. The abdomen was entered using a left subcostal Veress technique which
required 1 pass followed by a right upper quadrant 5 mm Optiview trocar to avoid his known umbilical hernia repair and mesh. Pneumoperitoneum to 15 mmHg pressure was obtained without difficulty and we confirmed that no injury had occurred during our
entry. The patient was positioned in reverse Trendelenberg and rotated with the right side up slightly. Two 5mm trocars were then placed along the right subcostal margin, and a 12 mm port in the epigastrium. A locking grasping forceps was placed on
the fundus of the gallbladder where it was then retracted cephalad and to the right. Using appropriate grasping instruments, the peritoneum overlying the triangle of Calot which was quite fatty was incised and extended superiorly on both the
anterior and posterior gallbladder hahn. The infundibulum was dissected off the cystic plate. The cystic triangle was dissected until a critical view of safety was achieved. The cystic artery was medialized, dissected and controlled with 2
proximal clips and 1 distal. The cystic duct/gallbladder junction in turn was identified, dissected circumferentially and a clip was placed. A ductotomy was made and a cholangiocatheter on an Foreman clamp was inserted into the cystic duct. The duct
was quite diminutive however so our initial catheter could not pass we attempted a tunnel catheter which we were able to cannulate the duct however we were not able to flush the catheter likely due to the proximity of the spiral valves and
collapsing of the lumen given how diminutive it was. We were able to milk free flow of bile retrograde from the dominique hepatis so at this point we elected to abort the cholangiogram. The catheter was then removed and the cystic duct was controlled
with a clip followed by a 0 PDS Endoloop two clips. After ensuring both the artery and duct were divided, the gallbladder was freed from the liver using electrocautery. There was some spillage of bile, but no spillage of stones. The right hepatic
artery appeared to be coursing along this cystic plate with a high insertion in the right lobe. Small branch consistent with a posterior cystic artery was identified coursing to the gallbladder this was clipped and divided. The main trunk of the
right hepatic artery was preserved. The gallbladder bed was inspected and excellent hemostasis was obtained. The gallbladder was extracted through the 12 mm trocar site using an endocatch bag. The abdomen was again irrigated and excellent
hemostasis was assured. All remaining trocars were then removed and the pneumoperitoneum was evacuated. The 12 mm trocar site was closed using 0 PDS suture. All trocar sites were closed at the skin level using 4-0 Monocryl followed by Dermabond.
Overall, the patient tolerated the procedure well and was taken to the Recovery Room postoperatively in stable condition.
I was the attending physician and performed the procedure with no assistance. I was present for all portions of the case
Francisco Monteiro MD
[2023-11-25] MEDS: SUBLIMAZE 25 MCG IV ×2 (12:44→12:52)
--- NOTE | 2023-11-25 13:30 | PTCARENOTE ---
1330: Patient arrived back to 2S post surgery. Head to toe assessment completed. 5 lap sites on abdomen. IVF running per order. 2L NC with SpO2 greater than 92%. Call gross within reach and bed in lowest position.
[2023-11-25] MEDS: LR IV (16:10)
[2023-11-25] MEDS: LOVENOX 40 MG SC (18:16)
[2023-11-25] MEDS: TYLENOL 650 MG PO (20:39)
[2023-11-26 00:34] VITALS: BP 148/82
[2023-11-26 03:15] VITALS: BP 127/76
[2023-11-26] MEDS: ZOSYN 50 IV (06:23)
[2023-11-26 07:00] VITALS: BP 159/90
[2023-11-26 07:55] LABS: % Basophils 0.1 % (0-2); % Eosinophils 0.1 % (0-6); % Immature Granulocytes 0.2 % (0-0.5); % Lymphocytes 15.2 % (20.5-51.1); % Monocytes 8.7 % (1.7-9.3); % Neutrophils 75.7 % (42.2-75.2); Absolute Lymphocytes 1.4 10^3/uL (1.2-3.4); Absolute Monocytes 0.8 10^3/uL (0.1-0.6); Absolute Neutrophils 6.9 10^3/uL (1.4-6.5); Hematocrit 36.8 % (39.0-52.0); Hemoglobin 12.7 g/dL (13.0-18.0); Mean Corp Hgb Conc. 34.5 g/dL (33.0-37.0); Mean Corpuscular Hgb 30.2 pg (27.0-31.0); Mean Corpuscular Volume 87.4 fL (80.0-94.0); Mean Platelet Volume 10.1 fL (7.4-10.4); Nucleated Red Blood Cells % 0 % (-); Platelet Count 284 10^3/uL (130-400); Red Blood Cell Count 4.21 10^6/uL (4.70-6.10); Red Cell Dist. Width 11.9 % (11.5-14.5); White Blood Cell Count 9.1 10^3/uL (4.8-10.8)
[2023-11-26 08:59] LABS: ALT (SGPT) 30 U/L (0-50); AST (SGOT) 39 U/L (17-59); Albumin 4.2 g/dl (3.5-5.0); Alkaline Phosphatase 64 U/L (38-126); Blood Urea Nitrogen 14 mg/dl (9-20); Calcium 9.6 mg/dl (8.4-10.2); Carbon Dioxide 23 mmol/L (22-30); Chloride 106 mmol/L (98-107); Estimated Creatinine Clearance 72 ml/min; Glucose 110 mg/dl (70-99); Potassium 4.2 mmol/L (3.5-5.1); Sodium 139 mmol/L (135-145); Total Protein 7.5 g/dl (6.3-8.2); eGFR 58.15
[2023-11-26 11:00] VITALS: BP 125/79
--- NOTE | 2023-11-26 11:14 | W.PN.GS2 ---
Today's Communication / Plan
-
Dispo planning
Assessment / Plan
-
This is a 43-year-old male primarily [place]-speaking with a history of umbilical hernia repair with mesh, who presents with a 2-day history of postprandial right upper quadrant pain. Imaging and blood work all consistent with acute cholecystitis.
Will DC home today.
Time Spent
Total Time Spent with Patient (in minutes): 20
Subjective Data
-
Date of Service: November 26, 2023
Interval Events:
No acute events overnight. Slept well. Pain Controlled. Denies Nausea/Vomiting, +bowel function. Tolerating diet.
Objective Data
-
Intake and Output
11/25/23 11/26/23 11/27/23
06:59 06:59 06:59
Intake Total 2580 / 2580 1570 / 1570
Balance 2580 / 2580 1570 / 1570
Intake:
Oral fluids 480 / 480 1320 / 1320
IV fluids (Total) 1900 / 1900 250 / 250
Normosal 250 / 250
IV piggybacks 200 / 200
Other:
Number of approximated MODERATE 2 2
amounts of urine
Vital Signs
Temp Pulse Resp BP Pulse Ox
98.0 F 93 16 159/90 96
11/26/23 07:00 11/26/23 07:00 11/26/23 07:00 11/26/23 07:00 11/26/23 07:00
Lab Results
11/26/23 07:22
11/26/23 07:22
Calcium 9.6 mg/dl (8.4-10.2) 11/26/23 07:22
Total Bilirubin 1.0 mg/dl (0.2-1.3) 11/26/23 07:22
AST 39 U/L (17-59) 11/26/23 07:22
ALT 30 U/L (0-50) 11/26/23 07:22
Alkaline Phosphatase 64 U/L (38-126) 11/26/23 07:22
Total Protein 7.5 g/dl (6.3-8.2) 11/26/23 07:22
Albumin 4.2 g/dl (3.5-5.0) 11/26/23 07:22
Physical Exam
-
GENERAL/NEURO: Awake, Alert, no distress
CHEST: Unlabored breathing on RA
ABDOMEN: Soft, Non-Tender, Non-Distended, incisions clean dry and intact.
--- NOTE | 2023-11-26 11:42 | CM ---
CM reviewed chart and noted dc order
Chart review and no dc needs noted
Discharge Disposition- home, no needs
--- NOTE | 2023-11-28 10:19 | W.DCSUMMARY ---
Discharge Summary
Discharge Data
Date of Admission: 11/25/23
Date of Discharge: 11/26/23
-
Pending Results: No
Hospital Course
43 yo male who presented with post prandial right upper quadrant pain with exam and US concerning for acute cholecystitis. He underwent laparoscopic cholecystectomy with cholangiogram without complication. He was discharged to home with plan for
outpatient follow up in the coming weeks.
Discharge Plan
-
Patient Disposition: Home (Routine Discharge)
Discharge Diagnosis/Procedures: Acute cholecystitis. Laparoscopic cholecystectomy with cholangiogram.
Condition: Good
Diet: No restrictions
Activity: No strenuous activity
Driving Restrictions: As prior to admission
Bathing Restrictions: OK to Shower
Activity Restrictions/Additional Instructions:
Instructions following Laparoscopic Cholecystectomy
Please call [phone] if you have any questions or concerns after your surgery.
Wound Care:
Your incisions are covered with skin glue which will come off on its own in 5-10 days.
It is ok to shower the day after your surgery. Do not scrub the incisions, let soap and water wash over them and pat dry.
� Bruising around your incisions is normal.
� Using ice packs will help minimize this swelling.
� No swimming or soaking incisions for 1 week.
� Your stitches will dissolve and do not need to be removed.
Urinary retention:
If you are unable to urinate 6-8 hours after your surgery, please call [phone] to discuss further management.
Activity:
No heavy lifting more than 15 pounds for the next 3 weeks, then you may gradually lift heavier objects as tolerated by discomfort. Otherwise activity as tolerated by your comfort level.
Pain Management:
Use Tylenol, ibuprofen and ice packs to treat your pain.
� You may take 650 milligrams of Tylenol (Max 3 grams per day) every 6 hours, and 600 mg of ibuprofen also every 6 hours. (you can alternate them every 3 hours)
� You may use an ice pack to your incision as needed.
� If you still have pain not controlled by these measures, take your prescription pain medication as prescribed.
Medications:
You may resume your home medications.
Bowel Medications:
Prescription pain medication can make you constipated. If you take this medication, also take colace 100 mg twice daily (this is over the counter). If this is not sufficient, you may take Miralax (polyethylene glycol) to help move your bowels.
Diet:
After your procedure, there are no dietary restrictions. However, you may notice some loose stools with fatty meals for up to 4 weeks after surgery. If this is the case, please adjust to a low fat diet as needed.
Driving restrictions:
No driving if you are taking prescription pain medication or if you think your normal reaction time and attentiveness has been slowed by your surgery.
Things to Look out for:
Worsening Abdominal pain, fever, jaundice, redness or drainage from incision
Call Doctor for:
Please call if you notice worsening redness or drainage from incision(s) lasting longer than 5 days after your surgery, any foul-smelling drainage from the incision, pain not controlled by pain medications, persistent nausea and vomiting, or for any
fevers greater than 101.3 F. The number for questions/concerns is [phone]
Follow-up:
A follow-up appointment will be scheduled with your surgeon in 3-4 weeks. Please call prior to your appointment if you have any questions or concerns. [phone]
Referrals:
Francisco Monteiro MD [Active] - in two to four weeks
UNKNOWN - PT DOES,NOT KNOW [Family Provider] -
Prescriptions:
New
acetaminophen [acetaminophen] 325 mg tablet
650 mg PO Q4HPRN PRN (Reason: mild pain) Qty: 1 0RF
ibuprofen 200 mg tablet
400 - 600 mg PO Q6HPRN PRN (Reason: moderate pain) Qty: 1 0RF
amoxicillin-pot clavulanate 875-125 mg tablet
1 tab PO Q12 4 Days Qty: 8 0RF
oxycodone 5 mg tablet
5 mg PO Q4HPRN PRN (Reason: breakthrough/severe pain) Qty: 10 0RF
Discharge Orders:
Discharge Patient (As Directed); Ordered 11/26/23
Ordered By: Franicsco Monteiro
Discharge Date and Time
Discharge Date/Time: 11/26/23 12:18
Print Language: FAROESE
== END 2023-11-26 12:18 | disposition home or self-care (01) | DRG 418 ==
LOC: 2 SOUTH 18:04
PROVIDERS: Physician Assistant; Registered Nurse; ADMITTING PHYSICIAN Surgery; ATTENDING PHYSICIAN Surgery; EMERGENCY PHYSICIAN Emergency Medicine
PROC: 0FT44ZZ Resection of Gallbladder, Percutaneous Endoscopic Approach (ICD-10-PCS; 2023-11-25)
PROC: BF141ZZ Fluoroscopy of Gallbladder, Bile Ducts and Pancreatic Ducts using Low Osmolar Contrast (ICD-10-PCS; 2023-11-25)
DX: K80.00 Calculus of gallbladder with acute cholecystitis without obstruction (principal); N17.9 Acute kidney failure, unspecified
CPT/HCPCS: 88304; 71045; 71275; 74174; 76700; 80048; 80053; 81003; 83690; 84484; 85025; 85027; 93005; 96361; 96374; 96375; 96376; 99285; A4300; Q9967